=== PATIENT | female | born 2000 | race Caucasian/White ===

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

== ENCOUNTER 2020-01-28 14:37 | Emergency (ER) | payer OTHER, BC ==
[2020-01-28 14:44] VITALS: BP 112/68
[2020-01-28] MEDS ORDERED: ACETAMINOPHEN 325 MG TABLET PO ONE (14:54)
--- NOTE | 2020-01-28 15:07 | ER Document Report ---
HPI - HPI Patient complains to provider of: Mouth pain Time Seen by Provider: 01/28/20 14:46 Context: 20-year-old female with no previous medical problems presents to the emergency room complaining of a sore throat for the past 2 days. States is been getting progressively worse. Is painful to swallow but is able to tolerate p.o. food and fluids without difficulty. Patient states she looked in her throat and thought it looked yellow and pussy on the roof of her mouth yesterday. Denies any burn. States she did burn her tongue a few days ago on a hot cup of coffee but does not remember burning roof of her mouth. Not taking any medications for her symptoms. No ill contacts. No recent travel. No COVID-19 exposure. Denies any chance of . Associated Symptoms: None Exacerbated by: Other - Swallowing Relieved by: Denies Similar symptoms previously: No Recently seen / treated by doctor: No - ROS Systems Reviewed and Negative: Yes All other systems reviewed and negative - CONSTITUTIONAL Constitutional: DENIES: Fever - EENT EENT: REPORTS: Sore Throat Notes: Mouth pain - NEURO Neurology: DENIES: Headache - RESPIRATORY Respiratory: DENIES: Trouble Breathing - REPRODUCTIVE Reproductive: DENIES: : - DERM Skin Color: Normal Skin Problems: None Past Medical History - General Information source: Patient - Social History Smoking Status: Current Every Day Smoker - vapes Frequency of alcohol use: Rare Drug Abuse: None Family History: None Vertical Provider Document - CONSTITUTIONAL Agree With Documented VS: Yes Exam Limitations: No Limitations Notes: VITAL SIGNS: Within normal limits. GENERAL: Mild acute distress, non-toxic appearance. HEAD: Normal with no signs of head trauma. EYES: PERRLA, EOMI, conjunctiva normal, no discharge. EARS: Hearing grossly intact. Tympanic membranes intact bilaterally without any erythema or bulging. Bilateral outer nails without erythema or swelling. NOSE: Normal. Turbinates are not erythematous, clear discharge is noted. Sinuses are nontender to palpation. THROAT: Oropharynx is normal. Pharyngeal erythema, no exudate. No tonsillar enlargement. No discoloration noted to the roof of the mouth. No signs of discharge from the palate. Nontender to palpation. NECK: Normal range of motion, no tenderness, supple, no lymphadenopathy, No adenopathy, no JVD. Negative Meningismus, Negative brudzzinski, Negative Kernig's CHEST: Clear breath sounds bilaterally. No wheezes, rales, or rhonchi. CARDIAC: Regular rate and rhythm. S1 and S2, without murmurs, gallops, or rubs. VASCULAR: No Edema. Peripheral pulses normal and equal in all extremities. ABDOMEN: Normal and soft with no tenderness, no masses or pulsatile masses. GASTROINTESTINAL: Bowel sounds normal GENITOURINARY: Normal, No tenderness LYMPATHTIC: No lymphadenopathy noted. MUSCULOSKELETAL: Good range of motion of all major joints. Extremities without clubbing, cyanosis or edema. NEUROLOGICAL: Alert and oriented x 3. No focal sensory or strength deficits. Speech normal. Follows commands appropriately. PSYCHIATRIC: Normal Affect, judgement and mood. SKIN: Normal appearance with no rashes or lesions. - INFECTION CONTROL TRAVEL OUTSIDE OF THE [place] IN LAST 30 DAYS: No Course - Re-evaluation Re-evalutation: 01/28/20 16:02 Patient is afebrile, nontoxic-appearing, able to tolerate p.o. fluids. Reviewed negative strep results with patient. Counseled that if her throat culture comes back positive and needs treatment she will be notified and treated appropriately. She was counseled on Tylenol and or Motrin as needed for pain. Outpatient follow-up with a primary care physician if not improving in 2 to 3 days. On-call physician was provided. Patient was given strict return to the emergency room guidelines. Return for any new or worsening symptoms. All questions were answered. Patient verbalized understanding and agrees with plan of care. - Vital Signs Vital signs: Temp Pulse Resp BP Pulse Ox 98.2 F 80 16 112/68 98 01/28/20 14:43 01/28/20 14:43 01/28/20 14:43 01/28/20 14:43 01/28/20 14:43 Discharge - Discharge Clinical Impression: Sore throat Condition: Stable Disposition: HOME, SELF-CARE Instructions: Sore Throat ([facility]) Additional Instructions: Tylenol and/or Motrin as needed for pain. Encourage fluids. Outpatient follow- up with a primary care physician if not improving in 2 to 3 days. Return to the emergency room for any new or worsening symptoms. Forms: Return to Work Referrals: JAILENE DIAZ, [NO LOCAL MD] - Follow up as needed
== END 2020-01-28 16:36 | disposition home or self-care (01) ==
LOC: ER 14:37
DX: J02.9 Acute pharyngitis, unspecified (principal); K08.89 Other specified disorders of teeth and supporting structures; R13.10 Dysphagia, unspecified; F17.290 Nicotine dependence, other tobacco product, uncomplicated
CPT/HCPCS: 87070; 87880; 99283